=== PATIENT | female | born 1950 | race African-American/Black ===

== ENCOUNTER → 2017-08-20 | Outpatient (CLI) | payer OTHER | END | disposition home or self-care (01) | LOC: RAD 09:42 | DX: Z01.818 Encounter for other preprocedural examination (principal); S83.281A Other tear of lateral meniscus, current injury, right knee, initial encounter; S83.241A Other tear of medial meniscus, current injury, right knee, initial encounter; M17.11 Unilateral primary osteoarthritis, right knee; G89.29 Other chronic pain; X58.XXXA Exposure to other specified factors, initial encounter; Y93.89 Activity, other specified; Y92.89 Other specified places as the place of occurrence of the external cause; Y99.8 Other external cause status | CPT/HCPCS: 73721; 77073 ==

== ENCOUNTER → 2017-08-25 | Outpatient (CLI) | payer OTHER ==
[2017-08-25 08:51] LABS: ADD MAN DIFF? NO
[2017-08-25 08:57] LABS: BASO % 1 % (0-3); EOS # 0.2 x10^3/uL (0.0-0.7); EOS % 3 % (0-3); HEMATOCRIT 42.1 % (36.0-47.0); HEMOGLOBIN 14.1 g/dL (12.0-15.5); LYMPH % 32 % (24-48); MEAN CORPUSCULAR HEMOGLOBIN 32 pg (25-35); MEAN CORPUSCULAR HGB CONC 33 g/dL (31-37); MEAN CORPUSCULAR VOLUME 95 fL (79-100); MONO # 0.6 x10^3/uL (0.0-1.1); MONO % 9 % (0-9); NEUT # 3.5 x10^3uL (1.8-7.7); NEUT % 55 % (31-73); PLATELET COUNT 406 x10^3/uL (140-400); RED BLOOD COUNT 4.42 x10^6/uL (3.50-5.40); RED CELL DISTRIBUTION WIDTH 13.3 % (11.5-14.5); WHITE BLOOD COUNT 6.4 x10^3/uL (4.0-11.0)
[2017-08-25 09:11] LABS: PARTIAL THROMBOPLASTIN TIME 29 SEC (24-38); PROTHROMBIN TIME PATIENT 12.9 SEC (11.7-14.0)
[2017-08-25 09:14] LABS: ALBUMIN 3.8 g/dL (3.4-5.0); ANION GAP 7 (6-14); BLOOD UREA NITROGEN 18 mg/dL (7-20); CALCIUM 9.8 mg/dL (8.5-10.1); CARBON DIOXIDE 29 mmol/L (21-32); CHLORIDE 104 mmol/L (98-107); CREATININE 0.9 mg/dL (0.6-1.0); GFR 76.3; GLUCOSE 101 mg/dL (70-99); POTASSIUM 4.7 mmol/L (3.5-5.1); SODIUM 140 mmol/L (136-145)
[2017-08-25 10:33] LABS: SEDIMENTATION RATE 18 (0-25)
[2017-08-25 13:20] LABS: BILIRUBIN,URINE NEGATIVE (NEG); CLARITY,URINE CLEAR; COLOR,URINE YELLOW; GLUCOSE,URINE NEGATIVE (NEG); NITRITE,URINE NEGATIVE (NEG); PH,URINE 6.5; PROTEIN,URINE NEGATIVE (NEG-TRACE); UROBILINOGEN,URINE 0.2 mg/dL (0.2 mg/dL)
[2017-08-25 13:30] LABS: BACTERIA,URINE FEW /HPF (0-FEW); RBC,URINE 0 /HPF (0-2); SQUAMOUS EPITHELIAL CELL,UR MANY /LPF
[2017-08-25 23:10] LABS: MRSA BY PCR Negative (Negative)
== END | disposition home or self-care (01) ==
LOC: SURGPAT 13:13
DX: Z01.818 Encounter for other preprocedural examination (principal); E78.5 Hyperlipidemia, unspecified
CPT/HCPCS: 36415; 71046; 80048; 81001; 82040; 85025; 85610; 85651; 85730; 87641; 93005

== ENCOUNTER 2017-09-15 11:19 | Inpatient (IN) | payer OTHER ==
[2017-09-15] MEDS: IV RINGERS,LACTATED 1000ML 1,000 ML IV (06:59)
[2017-09-15] MEDS: MELOXICAM 7.5 MG TABLET PO (07:00)
[2017-09-15] MEDS: HYDROcodone/APAP 7.5/325MG 1 TAB TABLET PO (07:01)
[2017-09-15] MEDS: SCOPOLAMINE 1.5MG PATCH. TD (07:04)
[2017-09-15 07:37] LABS: PARTIAL THROMBOPLASTIN TIME 31 SEC (24-38); PROTHROMBIN TIME PATIENT 12.8 SEC (11.7-14.0)
[2017-09-15] MEDS: TRANEXAMIC ACID 1,000 MG in IV NS 50ML -- 1ST BAG INJ (07:55)
[2017-09-15] MEDS: MORPHINE SULFATE 5 MG, KETOROLAC 30 MG, ROPIVacaine 0.5% PF 60 ML, EPINEPHrine 0.5 MG i... INT ART (08:08)
[2017-09-15] MEDS: TRANEXAMIC ACID 1,000 MG in IV NS 50ML -- 2ND BAG INJ (09:17)
[~2017-09-15 11:19] MED LIST: 0.9 % SODIUM CHLORIDE 10 ML DISP.SYRIN. IV; ACETAMINOPHEN 325 MG TABLET. PO; CALCIUM CARBONATE 500 MG TAB.CHEW PO; DESFLURANE > 120 MINUTES IH; DEXAMETHASONE SOD PHOS 20 MG/5 ML VIAL.; DEXTROSE 50% 25 GM / 50ML DISP.SYRIN. IV; FAMOTIDINE 20 MG/2 ML VIAL; GLYCOPYRROLATE 1 MG/5 ML VIAL.; HYDROcodone/APAP 10/325 1 TAB TABLET PO; HYDROcodone/APAP 7.5/325MG 1 TAB TABLET PO; KETOROLAC 30 MG/ML INJ FOR OR. INJ; LIDOCAINE 1% PF 2 ML VIAL. ID; LIDOCAINE 2% PF Vial for OR 5 ML VIAL.; MIDAZOLAM HCL/PF 2 MG/2 ML VIAL.; MORPHINE SULFATE 10 MG/ML VIAL. IV; MORPHINE SULFATE 4 MG/ML DISP.SYRIN. IV; NEOSTIGMINE METHYLSULFATE 5 MG/5 ML SYRINGE.; ONDANSETRON PF 4 MG/2 ML VIAL.; ONDANSETRON PF 4 MG/2 ML VIAL. IV; PROCHLORPERAZINE 10 MG/2 ML VIAL. IV; PROCHLORPERAZINE 5 MG TABLET. PO; PROPOFOL 20 ML IV; ROCURONIUM 50 MG/5 ML VIAL.; ZOLPIDEM 5 MG TABLET. PO; ceFAZolin 2GM PREMIX 2 GM/50 ML BAG IV; diphenhydrAMINE 50 MG/ML VIAL; diphenhydrAMINE 50 MG/ML VIAL IV; fentaNYL PF VIAL 100 MCG/2 ML VIAL; fentaNYL PF VIAL 100 MCG/2 ML VIAL IV; hydrALAZINE 20 MG/ML VIAL.; traMADol 50 MG TABLET PO
[2017-09-15] MEDS: IV DEXTROSE 5 %-0.45 % NACL 1,000 ML IV ×2 (13:36→22:00)
[2017-09-15] MEDS: FERROUS SULFATE 325 MG TABLET. PO (17:02)
[2017-09-15] MEDS: WARFARIN 7.5 MG TABLET. PO (17:02)
[2017-09-15] MEDS: ATORVASTATIN CALCIUM 10 MG TABLET. PO (20:47)
[2017-09-15] MEDS: CELECOXIB 200 MG CAPSULE. PO (20:54)
[2017-09-16] MEDS ORDERED: MAGNESIUM HYDROXIDE 2,400 MG/30 ML ORAL.SUSP. PO (06:00)
[2017-09-16 06:39] LABS: ADD MAN DIFF? NO
[2017-09-16 07:00] LABS: ANION GAP 5 (6-14); BLOOD UREA NITROGEN 13 mg/dL (7-20); CALCIUM 8.7 mg/dL (8.5-10.1); CARBON DIOXIDE 27 mmol/L (21-32); CHLORIDE 106 mmol/L (98-107); GFR 67.5; GLUCOSE 111 mg/dL (70-99); POTASSIUM 4.3 mmol/L (3.5-5.1); SODIUM 138 mmol/L (136-145)
[2017-09-16 07:03] LABS: BASO % 0 % (0-3); EOS % 0 % (0-3); HEMATOCRIT 30.4 % (36.0-47.0); HEMOGLOBIN 10.4 g/dL (12.0-15.5); LYMPH % 14 % (24-48); MEAN CORPUSCULAR HEMOGLOBIN 33 pg (25-35); MEAN CORPUSCULAR HGB CONC 34 g/dL (31-37); MEAN CORPUSCULAR VOLUME 97 fL (79-100); MONO # 1.4 x10^3/uL (0.0-1.1); MONO % 10 % (0-9); NEUT # 11.2 x10^3uL (1.8-7.7); NEUT % 77 % (31-73); PLATELET COUNT 268 x10^3/uL (140-400); RED BLOOD COUNT 3.15 x10^6/uL (3.50-5.40); RED CELL DISTRIBUTION WIDTH 13.6 % (11.5-14.5); WHITE BLOOD COUNT 14.7 x10^3/uL (4.0-11.0)
[2017-09-16 07:11] LABS: INR 1.2 (0.8-1.1); PROTHROMBIN TIME PATIENT 15.1 SEC (11.7-14.0)
[2017-09-16] MEDS: IV DEXTROSE 5 %-0.45 % NACL 1,000 ML IV (08:00)
[2017-09-16] MEDS: SENNOSIDES/DOCUSATE 8.6/50MG TABLET. PO ×2 (08:17→20:31)
[2017-09-16] MEDS: FERROUS SULFATE 325 MG TABLET. PO ×2 (08:17→16:57)
[2017-09-16] MEDS: oxyCODONE/APAP 5/325 1 TAB TABLET PO (08:18)
[2017-09-16] MEDS: CELECOXIB 200 MG CAPSULE. PO (08:21)
[2017-09-16] MEDS: MULTIVITAMIN with MINERAL TABLET. PO (11:44)
[2017-09-16] MEDS: POLYETHYLENE GLYCOL 3350 17 GM PACKET. PO (11:44)
[2017-09-16] MEDS: oxyCODONE/APAP 7.5/325 1 TAB TABLET PO ×2 (12:34→20:32)
[2017-09-16] MEDS: WARFARIN 5 MG TABLET. PO (16:57)
[2017-09-16] MEDS: ATORVASTATIN CALCIUM 10 MG TABLET. PO (20:31)
[2017-09-17 05:05] LABS: ADD MAN DIFF? NO
[2017-09-17 05:19] LABS: BASO % 1 % (0-3); EOS # 0.1 x10^3/uL (0.0-0.7); EOS % 1 % (0-3); HEMATOCRIT 32.1 % (36.0-47.0); LYMPH # 2.3 x10^3/uL (1.0-4.8); LYMPH % 23 % (24-48); MEAN CORPUSCULAR HEMOGLOBIN 33 pg (25-35); MEAN CORPUSCULAR HGB CONC 34 g/dL (31-37); MEAN CORPUSCULAR VOLUME 97 fL (79-100); MONO # 1.3 x10^3/uL (0.0-1.1); MONO % 13 % (0-9); NEUT # 6.4 x10^3uL (1.8-7.7); NEUT % 63 % (31-73); PLATELET COUNT 269 x10^3/uL (140-400); RED CELL DISTRIBUTION WIDTH 13.3 % (11.5-14.5); WHITE BLOOD COUNT 10.1 x10^3/uL (4.0-11.0)
[2017-09-17 05:28] LABS: INR 1.6 (0.8-1.1); PROTHROMBIN TIME PATIENT 18.5 SEC (11.7-14.0)
[2017-09-17] MEDS: METOCLOPRAMIDE HCL 10 MG/2 ML VIAL. IV (07:21)
[2017-09-17] MEDS: BISACODYL 10 MG SUPP.RECT. PR (07:22)
[2017-09-17] MEDS: oxyCODONE/APAP 7.5/325 1 TAB TABLET PO (11:30)
[2017-09-17] MEDS: MULTIVITAMIN with MINERAL TABLET. PO (11:30)
[2017-09-17] MEDS: POLYETHYLENE GLYCOL 3350 17 GM PACKET. PO (11:32)
[2017-09-17] MEDS: FERROUS SULFATE 325 MG TABLET. PO ×2 (11:32→17:28)
[2017-09-17] MEDS ORDERED: LACTULOSE 20 GM/30 ML SOLUTION. PO (16:00)
[2017-09-17] MEDS: WARFARIN 4 MG TABLET. PO (17:28)
[2017-09-17] MEDS: SENNOSIDES/DOCUSATE 8.6/50MG TABLET. PO (21:25)
[2017-09-17] MEDS: ATORVASTATIN CALCIUM 10 MG TABLET. PO (21:25)
[2017-09-18 04:44] LABS: HEMATOCRIT 29.8 % (36.0-47.0); HEMOGLOBIN 10.3 g/dL (12.0-15.5); MEAN CORPUSCULAR HGB CONC 35 g/dL (31-37)
[2017-09-18 04:51] LABS: INR 1.7 (0.8-1.1); PROTHROMBIN TIME PATIENT 19.4 SEC (11.7-14.0)
[2017-09-18] MEDS: oxyCODONE/APAP 7.5/325 1 TAB TABLET PO ×2 (08:00→14:55)
[2017-09-18] MEDS: POLYETHYLENE GLYCOL 3350 17 GM PACKET. PO (09:00)
[2017-09-18] MEDS ORDERED: PNEUMOCOCCAL VAX SCREEN BY RX. MC (11:45)
[2017-09-18] MEDS: FERROUS SULFATE 325 MG TABLET. PO (14:15)
[2017-09-18] MEDS: MULTIVITAMIN with MINERAL TABLET. PO (14:23)
[2017-09-18] MEDS: WARFARIN 5 MG TABLET. PO (14:55)
[2017-09-18] MEDS: PNEUMOC CONJ VACC 23-VALENT 0.5 ML VIAL. VAX IM (14:58)
== END 2017-09-18 15:48 | disposition home health service (06) | DRG 470 ==
LOC: OPSVCIP 11:19 → 4 SOUTHEST 11:21
PROC: 0SRC0J9 Replacement of Right Knee Joint with Synthetic Substitute, Cemented, Open Approach (ICD-10-PCS; principal; 2017-09-15 07:30)
DX: M17.11 Unilateral primary osteoarthritis, right knee (principal); D62 Acute posthemorrhagic anemia; E78.5 Hyperlipidemia, unspecified; D72.829 Elevated white blood cell count, unspecified; Z96.653 Presence of artificial knee joint, bilateral; K59.00 Constipation, unspecified; Z82.49 Family history of ischemic heart disease and other diseases of the circulatory system; Z90.710 Acquired absence of both cervix and uterus; Z90.722 Acquired absence of ovaries, bilateral; Z88.2 Allergy status to sulfonamides
CPT/HCPCS: 36415; 73560; 80048; 85014; 85018; 85025; 85610; 85730; 86850; 86900; 86901; 88304; 88311; 90732; 97110-GP; 97116-GP; 97150-GP; 97162-GP; 97166-GO; 97530-GP; 97535-GO; A7015; C1713; J0171; J0360; J0690; J1100; J1200; J1885; J2250; J2270; J2405; J2704; J2710; J2765; J2795; J3010; J3490; J7030; J7120; S0028